=== PATIENT | male | born 1955 | race Caucasian/White ===

== ENCOUNTER 2017-10-13 15:03 | Emergency (ER) | payer OTHER ==
[2017-10-13 15:55] LABS: Bilirubin Negative (Negative); Blood, Urine Negative (Negative); Clarity Clear (Clear); Glucose, Urine (Dipstick) Negative (Negative); Leukocyte Negative (Negative); Nitrite Negative (Negative); Protein, Urine (Dipstick) Negative (Neg-Trace); pH, Urine 6.5 (5.0-9.0)
== END 2017-10-13 16:29 | disposition home or self-care (01) ==
LOC: MADERS 15:03
DX: R33.9 Retention of urine, unspecified (principal)
CPT/HCPCS: 51703; 81003; 87086